=== PATIENT | female | born 1975 | race Two or more races ===

== ENCOUNTER 2017-12-13 08:32 | Outpatient (CLI) | payer OTHER ==
[~2017-12-13 08:32] MED LIST: ANTIVERT25 M1 PO; CIPRO500 MG PO; SEPTRA DS TABLE1 TAB PO; TRAMADOL HCL50 MG PO; URIN D.S. TABLE1 TAB PO
== END 2017-12-13 08:42 | disposition home or self-care (01) ==
LOC: MAMO-SONO 08:32
DX: N64.89 Other specified disorders of breast (principal); Z12.31 Encounter for screening mammogram for malignant neoplasm of breast